=== PATIENT | female | born 1935 | race Caucasian/White ===

== ENCOUNTER 2022-01-02 16:33 | Emergency (ER) | payer OTHER ==
[2022-01-02 18:12] LABS: Absolute Lymphocytes (CBC) 1.2 K/uL (0.7-4.9); Hematocrit 39.2 % (36.0-45.0); Lymphocytes % 18.8 % (15.3-44.8); RBC Red Blood Cell Count 4.33 M/uL (3.86-4.86)
--- NOTE | 2022-01-02 18:18 | RAD REPORT ---
EXAM DESCRIPTION: RAD - Chest Single View - 01/02/2022 5:54 pm CLINICAL HISTORY: AMS COMPARISON: No comparisons FINDINGS: Lines: Pacemaker. Lungs: No evidence of edema or pneumonia. Pleural: No significant pleural effusions or pneumothorax. Cardiac: The heart size is within normal limits. Bones: No acute fractures. Other: IMPRESSION: No acute cardiopulmonary disease.
[2022-01-02 18:34] LABS: Albumin 3.6 g/dL (3.4-5.0); Bilirubin Total 0.7 mg/dL (0.2-1.0); Potassium 3.3 mmol/L (3.5-5.1); Protein, Total 6.8 g/dL (6.4-8.2)
--- NOTE | 2022-01-02 18:37 | RAD REPORT ---
EXAM DESCRIPTION: CT - Head Brain Wo Cont - 01/02/2022 6:25 pm CLINICAL HISTORY: Mental status change, unknown cause COMPARISON: <Comparisons> TECHNIQUE: All CT scans are performed using dose optimization technique as appropriate and may inclu de automated exposure control or mA/KV adjustment according to patient size. FINDINGS: No intracranial hemorrhage, hydrocephalus or extra-axial fluid collection.No areas of brai n edema or evidence of midline shift. Cerebral atrophy. Remote appearing heart. Proximal osseus The paranasal sinuses and mastoids are clear. The calvarium is intact. IMPRESSION: No acute intracranial abnormality. Remote appearing left occipital lobe infarct.
[2022-01-02 19:24] LABS: SARS-COV-2 RT PCR NEGATIVE (NEGATIVE)
[2022-01-02 19:56] LABS: Urine Bacteria LOADED /HPF (<20); Urine RBC <5 /HPF (NONE SEEN)
--- NOTE | 2022-01-02 20:06 | EDPHYS ---
Physician Documentation [facility] Name: Yamileth Varela Age: 86 yrs Sex: Female : 1935 Arrival Date: 01/02/2022 Time: 16:39 Bed 15 Private MD: ED Physician Constantine Powers HPI: 01/02 17:15 This 86 yrs old Female presents to ER via Wheelchair with complaints of Altered Mental pm1 Status, Urinary Problem. 17:15 The patient presents with Aggressiveness. Patient was confronting other patients and pm1 health care staff. Patient currently staying in a Alzheimer's/dementia unit. They are concerned that she may have a UTI. Similar behavior in the past with UTI. Onset: The symptoms/episode began/occurred today. Possible causes: UTI. Associated signs and symptoms: Pertinent negatives: abdominal pain, chest pain, diarrhea, nausea, vomiting. Current symptoms: In the emergency department the patient's symptoms have improved, Patient not altered or aggressive in the ER currently. Daughter in law at bedside and patient at her baseline. Patient's baseline: Neuro: orientated to person, place, Motor: no deficits, Ambulation: walks without assistance, Speech: normal, The patient has a previous history of Dementia. The patient has experienced a previous episode, many years ago. The patient has not recently seen a physician. Historical: - Allergies: 16:54 No Known Allergies; jb4 - PMHx: 16:54 Hypertensive disorder; Diabetes mellitus; Dementia; jb4 - PSHx: 16:54 pacemaker; jb4 - Immunization history:: Adult Immunizations up to date. - Social history:: Smoking status: Patient denies any tobacco usage or history of. Patient/guardian denies using alcohol, street drugs. ROS: 17:15 Constitutional: Negative for fever, chills, and weight loss, Cardiovascular: Negative pm1 for chest pain, palpitations, and edema, Respiratory: Negative for shortness of breath, cough, wheezing, and pleuritic chest pain, Abdomen/GI: Negative for abdominal pain, nausea, vomiting, diarrhea, and constipation, MS/Extremity: Negative for injury and deformity, Skin: Negative for injury, rash, and discoloration. 17:15 Neuro: Positive for aggressive behavior , Negative for headache, numbness, tingling. 17:15 All other systems are negative. Exam: 17:15 Constitutional: This is a well developed, well nourished patient who is awake, alert, pm1 and in no acute distress. Head/Face: Normocephalic, atraumatic. 17:15 Back: No spinal tenderness. No costovertebral tenderness. Full range of motion. Skin: Warm, dry with normal turgor. Normal color with no rashes, no lesions, and no evidence of cellulitis. MS/ Extremity: Pulses equal, no cyanosis. Neurovascular intact. Full, normal range of motion. 17:15 Eyes: Exam is negative for acute changes, Pupils: no acute changes, Extraocular movements: no acute changes, Conjunctiva: normal, no injection. 17:15 Cardiovascular: Exam negative for acute changes, Rate: normal, Rhythm: regular, Pulses: no pulse deficits are appreciated. 17:15 Respiratory: Exam negative for acute changes, respiratory distress, shortness of breath. 17:15 Abdomen/GI: Exam negative for acute changes, Inspection: abdomen appears normal, Palpation: abdomen is soft and non-tender, in all quadrants. 17:15 Neuro: Exam negative for acute changes, Orientation: no acute changes, per family, to person, place, Mentation: is normal, Motor: is normal, moves all fours. Vital Signs: 16:51 BP 111 / 57; Pulse 81; Resp 16; Temp 99.0(O); Pulse Ox 99% on R/A; Weight 56.7 kg (R); jb4 Height 5 ft. 3 in. (160.02 cm) (R); 18:30 BP 111 / 56; Pulse 75; Resp 16; Pulse Ox 100% ; bp 16:51 Body Mass Index 22.14 (56.70 kg, 160.02 cm) jb4 MDM: 17:04 Patient medically screened. pm1 19:59 Differential Diagnosis: CVA, UTI, delirium, Alzheimer's/dementia progression. pm1 20:04 Data reviewed: vital signs. Data interpreted: Pulse oximetry: on room air is 100 %. pm1 Interpretation: normal. Counseling: I had a detailed discussion with the patient and/or guardian regarding: the historical points, exam findings, and any diagnostic results supporting the discharge/admit diagnosis, lab results, radiology results, the need for outpatient follow up, to return to the emergency department if symptoms worsen or persist or if there are any questions or concerns that arise at home. 01/02 17:14 Order name: COVID-19/FLU A+B (Document "Date of Onset" if Symptomatic); Complete Time: pm1 19:29 01/02 17:14 Order name: Urine Microscopic Only; Complete Time: 19:57 pm1 01/02 17:14 Order name: CT Head Brain wo Cont; Complete Time: 18:47 pm1 01/02 17:14 Order name: CBC with Diff; Complete Time: 18:31 pm1 01/02 17:14 Order name: CMP; Complete Time: 18:47 pm1 01/02 19:59 Order name: Urine Culture EDMS 01/02 17:14 Order name: EKG; Complete Time: 17:14 pm1 01/02 17:14 Order name: EKG - Nurse/Tech; Complete Time: 19:08 pm1 01/02 17:14 Order name: Urine Dipstick-Ancillary (obtain specimen); Complete Time: 19:38 pm1 01/02 17:14 Order name: IV Saline Lock; Complete Time: 18:14 pm1 01/02 17:14 Order name: Chest Single View XRAY; Complete Time: 18:31 pm1 Administered Medications: 21:14 Drug: Rocephin (cefTRIAXone) 1 grams Route: IV; Rate: calculated rate; Site: right ke1 antecubital; Disposition Summary: 01/02/22 20:05 Discharge Ordered Location: Home pm1 Problem: new pm1 Symptoms: have improved pm1 Condition: Stable pm1 Diagnosis - UTI/ Urinary tract infection, site not specified pm1 Followup: pm1 - With: Emergency Department - When: As needed - Reason: Worsening of condition Followup: pm1 - With: Private Physician - When: 2 - 3 days - Reason: Recheck today's complaints, Continuance of care, Re-evaluation by your physician Discharge Instructions: - Discharge Summary Sheet pm1 - Urinary Tract Infection, Adult pm1 Forms: - Medication Reconciliation Form pm1 - Thank You Letter pm1 - Antibiotic Education pm1 - Prescription Opioid Use pm1 Prescriptions: - Bactrim DS 800-160 mg Oral Tablet - take 1 tablet by ORAL route every 12 hours for 10 days; 20 tablet; Refills: 0, pm1 Product Selection Permitted Addendum: 01/08/2022 07:59 Co-signature as Attending Physician, Constantine Powers MD I agree with the assessment and c lentz plan of care. Signatures: Dispatcher [employer] Constantine Corado MD MD cha Marinas, Patrick, ROMI LPN pm1 Elvin Griffin, RN RN jb4 Itz Rocha RN RN ke1
--- NOTE | 2022-01-02 20:06 | ER ---
Nurse's Notes [facility] Name: Yamileth Varela Age: 86 yrs Sex: Female : 1935 Arrival Date: 01/02/2022 Time: 16:39 Bed 15 Private MD: Diagnosis: UTI/ Urinary tract infection, site not specified Presentation: 01/02 16:51 Chief complaint: Patient's son or daughter states: Staff at [facility] reports that jb4 she has been very irritable and confrontational with other residents. She seems altered, they are worried about a UTI. Coronavirus screen: At this time, the client does not indicate any symptoms associated with coronavirus-19. Ebola Screen: No symptoms or risks identified at this time. Initial Sepsis Screen: Does the patient meet any 2 criteria? Altered Mental Status. Yes Does the patient have a suspected source of infection? Yes: Dysuria/Frequency/Urgency/UTI. Risk Assessment: Do you want to hurt yourself or someone else? Patient reports no desire to harm self or others. Onset of symptoms was January 02, 2022. Transition of care: patient was not received from another setting of care. 16:51 Method Of Arrival: Wheelchair jb4 16:51 Acuity: KENTRELL 3 jb4 Triage Assessment: 17:00 General: Appears in no apparent distress. comfortable, Behavior is cooperative, bp anxious. Pain: Denies pain. EENT: No deficits noted. Neuro: Level of Consciousness is awake, obeys commands, confused, Oriented to person, place. Cardiovascular: No deficits noted. Respiratory: No deficits noted. GI: No signs and/or symptoms were reported involving the gastrointestinal system. : No signs and/or symptoms were reported regarding the genitourinary system. Derm: No deficits noted. Musculoskeletal: No deficits noted. Historical: - Allergies: 16:54 No Known Allergies; jb4 - PMHx: 16:54 Hypertensive disorder; Diabetes mellitus; Dementia; jb4 - PSHx: 16:54 pacemaker; jb4 - Immunization history:: Adult Immunizations up to date. - Social history:: Smoking status: Patient denies any tobacco usage or history of. Patient/guardian denies using alcohol, street drugs. Screenin:00 Abuse screen: Denies threats or abuse. Denies injuries from another. Nutritional bp screening: No deficits noted. Tuberculosis screening: No symptoms or risk factors identified. Fall Risk None identified. Assessment: 17:00 General: SEE TRIAGE NOTE. bp 18:00 Reassessment: PT TO CT. bp Vital Signs: 16:51 BP 111 / 57; Pulse 81; Resp 16; Temp 99.0(O); Pulse Ox 99% on R/A; Weight 56.7 kg (R); jb4 Height 5 ft. 3 in. (160.02 cm) (R); 18:30 BP 111 / 56; Pulse 75; Resp 16; Pulse Ox 100% ; bp 16:51 Body Mass Index 22.14 (56.70 kg, 160.02 cm) jb4 ED Course: 16:39 Patient arrived in ED. am2 16:54 Triage completed. jb4 16:54 Arm band placed on right wrist. jb4 16:58 Tulio Foster, ALDEN is Primary Nurse. bp 17:00 Vincenzo Carlson NP is PHCP. pm1 17:00 Constantine Powers MD is Attending Physician. pm1 17:30 Inserted saline lock: 20 gauge in right antecubital area, using aseptic technique. bp Blood collected. 17:56 Chest Single View XRAY In Process Unspecified. EDMS 18:00 Patient has correct armband on for positive identification. Bed in low position. Call bp light in reach. Side rails up X2. Adult w/ patient. 18:27 CT Head Brain wo Cont In Process Unspecified. EDMS Administered Medications: 21:14 Drug: Rocephin (cefTRIAXone) 1 grams Route: IV; Rate: calculated rate; Site: right ke1 antecubital; Outcome: 20:05 Discharge ordered by . pm1 21:39 Patient left the ED. tw5 Signatures: Dispatcher [employer] EDMS Vincenzo Carlson NP TRACTOR OPERATOR pm1 Elvin Griffin RN RN jb4 Vonnie Sigala am2 Tulio Foster, RN RN Savi Duke tw5 Itz Rocha RN RN ke1 Corrections: (The following items were deleted from the chart) 16:56 16:51 Chief complaint: Patient's son or daughter states: Staff at [facility] reports jb4 that she has been very irritable and confrontational with other residents. She seems altered, they are worried about a UTI. jb4 18:50 18:30 BP 90 / 66; Pulse 75bpm; Resp 16bpm; Pulse Ox 100%; bp bp
[2022-01-02] MEDS ORDERED: NA CHLORIDE 0.9% 50 ML ONE (21:11)
[2022-01-02] MEDS ORDERED: CEFTRIAXONE 1000 MG/VIAL ONE (21:11)
[2022-01-02 21:49] VITALS: TEMP 99
[2022-01-02 21:51] VITALS: BP 111/56; O2SAT 100
[2022-01-08 10:28] LABS: Urine Blood Negative (Negative); Urine Glucose Negative (Negative); Urine Protein Negative (Negative); Urine Specific Gravity >=1.030 (1.005-1.030); Urine pH 6.5 (5.0-7.0)
== END 2022-01-02 21:39 | disposition home or self-care (01) ==
LOC: ER 16:33
DX: N39.0 Urinary tract infection, site not specified (principal); F03.90 Unspecified dementia, unspecified severity, without behavioral disturbance, psychotic disturbance, mood disturbance, and anxiety; E11.9 Type 2 diabetes mellitus without complications; I10 Essential (primary) hypertension; Z20.822 Contact with and (suspected) exposure to COVID-19; Z95.0 Presence of cardiac pacemaker
CPT/HCPCS: 93005; 87088; 85025; 87086; 36415; 80053; 0240U; 70450; 71045; 96374; 99284; 81003; 81015

== ENCOUNTER 2022-01-08 16:54 | Emergency (ER) | payer OTHER ==
[2022-01-08 17:32] LABS: Absolute Lymphocytes (CBC) 1.4 K/uL (0.7-4.9); Hematocrit 37.5 % (36.0-45.0); Lymphocytes % 17.3 % (15.3-44.8); MPV 7.8 fL (7.6-11.3); RBC Red Blood Cell Count 4.21 M/uL (3.86-4.86)
[2022-01-08 17:36] LABS: Protime INR 1.06
[2022-01-08] MEDS ORDERED: NA CHLORIDE 0.9% 500 ML ONE (17:38)
[2022-01-08] MEDS ORDERED: CEFTRIAXONE 1000 MG/VIAL ONE (17:38)
[2022-01-08 17:50] LABS: Albumin 3.6 g/dL (3.4-5.0); Bilirubin Direct 0.2 mg/dL (0-0.2); Bilirubin Total 0.5 mg/dL (0.2-1.0); Magnesium 2.4 mg/dL (1.8-2.4); Potassium 3.6 mmol/L (3.5-5.1); Protein, Total 6.8 g/dL (6.4-8.2)
[2022-01-08 17:51] LABS: Troponin High Sensitivity 5.6 pg/mL (<58.9)
--- NOTE | 2022-01-08 18:29 | RAD REPORT ---
EXAM DESCRIPTION: CT - Head C Spine Cap Wo Con - 01/08/2022 5:56 pm TECHNIQUE: Computed axial tomography of the head and cervical spine was obtained. Coronal and sagitt al reconstruction was performed Computed axial tomography of the chest, abdomen and pelvis was obtained. Contrast was not requested. All CT scans are performed using dose optimization technique as appropriate and may include automated exposure control or mA/KV adjustment according to patient size. CLINICAL HISTORY: Head and neck injury with chest and abdominal pain status post fall COMPARISON: CT head January 02 2022 FINDINGS: An intracranial bleed is not seen. Small low-density area within the left occipital lobe probably an old infarction The ventricles are normal in caliber. An extra-axial fluid collection is not noted. . Fluid within the sinuses/mastoids is not seen. 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 This is without ch mike from the prior head CT. No acute fracture or dislocation seen. The evaluation of mediastinum, rubén, vessels, solid organs and bowel are limited secondary to the lac k of contrast administration. A mediastinal hematoma is not noted. A pleural effusion is not seen. A lung contusion is not present. The liver,spleen, pancreas, adrenals,kidneys and bladder do not demonstrate a traumatic injury. Yytj-[id number]-zellobpo compression L1 vertebral body estimated 35%. No fracture line seen Cholelithiasis IMPRESSION: 1. No acute intracranial abnormality is seen. 2. 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 This is unchanged from January 02, 2022. This likely is a chronic finding and could be congenital or secondary to old trauma. If the patient has clinical sympt oms to suggest that this could be subacute MRI would be recommended. 3. Mild to moderate compression L1 vertebral body appears more chronic than acute. If patient has cli nical symptoms to suggest this could be acute then MRI would be recommended.
[2022-01-08 18:51] LABS: Urine Blood Negative (Negative); Urine Glucose Negative (Negative); Urine Protein Negative (Negative); Urine pH 6.5 (5.0-7.0)
--- NOTE | 2022-01-08 18:57 | ER ---
Nurse's Notes [facility] Name: Yamileth Varela Age: 86 yrs Sex: Female : 1935 Arrival Date: 01/08/2022 Time: 16:58 Bed 15 Private MD: Diagnosis: Fall on same level, unspecified;Dementia in other diseases classified elsewhere without behavioral disturbance Presentation: 01/08 16:58 Chief complaint: EMS states: She had an unwitnessed fall in the senior care. Pt states ab2 she lost her balance and fell backwards. Pt did hit her head but denies LOC. Pt c/o headache. Pt arrived with c-collar in place. Coronavirus screen: Vaccine status: Client denies travel out of the [place] in the last 14 days. At this time, the client does not indicate any symptoms associated with coronavirus-19. Ebola Screen: Patient negative for fever greater than or equal to 101.5 degrees Fahrenheit, and additional compatible Ebola Virus Disease symptoms Patient denies exposure to infectious person. Patient denies travel to an Ebola-affected area in the 21 days before illness onset. No symptoms or risks identified at this time. Initial Sepsis Screen: Does the patient meet any 2 criteria? No. Patient's initial sepsis screen is negative. Does the patient have a suspected source of infection? No. Patient's initial sepsis screen is negative. Risk Assessment: Do you want to hurt yourself or someone else? Patient reports no desire to harm self or others. Onset of symptoms is unknown. 16:58 Method Of Arrival: EMS: [facility] ab2 16:58 Acuity: KENTRELL 3 ab2 Historical: - Allergies: 17:01 No Known Allergies; ab2 - PMHx: 17:01 Dementia; diabetes mellitus; Hypertensive disorder; ab2 - PSHx: 17:01 pacemaker; ab2 - Immunization history:: Adult Immunizations up to date. - Social history:: Smoking status: Patient denies any tobacco usage or history of. Screenin:02 Abuse screen: Denies threats or abuse. Denies injuries from another. Nutritional ab2 screening: No deficits noted. Tuberculosis screening: No symptoms or risk factors identified. Fall Risk None identified. Assessment: 17:01 General: Appears in no apparent distress. comfortable, Behavior is calm, cooperative, ab2 appropriate for age. Pain: Complains of pain in head Pain currently is 7 out of 10 on a pain scale. Neuro: Level of Consciousness is awake, alert, obeys commands, Oriented to person, situation, Appropriate for age [place] are equal bilaterally Moves all extremities. Cardiovascular: No deficits noted. Denies chest pain, shortness of breath, Heart tones S1 S2 present Patient's skin is warm and dry. Respiratory: No deficits noted. Airway is patent Respiratory effort is even, unlabored, Respiratory pattern is regular, symmetrical, Breath sounds are clear bilaterally. GI: No deficits noted. No signs and/or symptoms were reported involving the gastrointestinal system. Abdomen is round non-distended, Bowel sounds present X 4 quads. GI: Abd is soft and non tender. : No deficits noted. No signs and/or symptoms were reported regarding the genitourinary system. EENT: No deficits noted. No signs and/or symptoms were reported regarding the EENT system. Derm: No deficits noted. Skin is intact, Skin is pink, warm \T\ dry. Vital Signs: 16:58 BP 107 / 52; Pulse 80; Resp 17; Temp 97.6; Pulse Ox 99% on R/A; Weight 68.04 kg; Height ab2 5 ft. 9 in. (175.26 cm); Pain 7/10; 18:00 BP 111 / 60; Pulse 83; Resp 16; Pulse Ox 98% ; ab2 19:15 BP 104 / 54; Pulse 73; Resp 17; Pulse Ox 98% ; ab2 16:58 Body Mass Index 22.15 (68.04 kg, 175.26 cm) ab2 Gloria Coma Score: 18:30 Eye Response: spontaneous(4). Verbal Response: oriented(5). Motor Response: obeys tatiana commands(6). Total: 15. 18:33 Eye Response: spontaneous(4). Verbal Response: oriented(5). Motor Response: obeys tatiana commands(6). Total: 15. ED Course: 16:58 Patient arrived in ED. ab2 16:58 Tanner Tovar is Primary Nurse. ab2 17:01 Triage completed. ab2 17:02 Arm band placed on right wrist. ab2 17:02 Patient has correct armband on for positive identification. Bed in low position. Call ab2 light in reach. Side rails up X2. 17:02 No provider procedures requiring assistance completed. ab2 17:10 Constantine Powers MD is Attending Physician. tatiana 17:29 Basic Metabolic Panel Sent. ab2 17:29 CBC with Diff Sent. ab2 17:29 LFT's Sent. ab2 17:29 Magnesium Sent. ab2 17:29 NT PRO-BNP Sent. ab2 17:29 PT-INR Sent. ab2 17:29 Troponin HS Sent. ab2 17:37 EKG done, by ED staff, reviewed by Constantine Powers MD. dh3 17:58 Head C Spine Cap Wo Con In Process Unspecified. EDMS 18:36 XRAY Chest (1 view) In Process Unspecified. EDMS 20:07 IV discontinued, intact, bleeding controlled, No redness/swelling at site. Pressure ab2 dressing applied. Administered Medications: 17:38 Drug: NS 0.9% 500 ml Route: IV; Rate: bolus; Site: right antecubital; ab2 20:07 Follow up: Response: No adverse reaction; IV Status: Completed infusion ab2 17:38 Drug: Rocephin (cefTRIAXone) 1 grams Route: IV; Rate: per protocol; Site: right ab2 antecubital; 20:08 Follow up: Response: No adverse reaction ab2 20:08 Follow up: Response: No adverse reaction; IV Status: Completed infusion ab2 Outcome: 18:56 Discharge ordered by . [facility] 20:07 Discharged to home with family. ab2 20:07 Condition: good 20:07 Discharge instructions given to patient, family, Instructed on discharge instructions, follow up and referral plans. Demonstrated understanding of instructions, follow-up care. 20:08 Patient left the ED. ab2 Signatures: Dispatcher [employer] Constantine Corado MD MD cha Herrera, [facility] Tanner Tovar ab2
--- NOTE | 2022-01-08 18:57 | EDPHYS ---
Physician Documentation [facility] Name: Yamileth Varela Age: 86 yrs Sex: Female : 1935 Arrival Date: 01/08/2022 Time: 16:58 Bed 15 Private MD: ED Physician Constantine Powers HPI: 01/08 18:30 This 86 yrs old Female presents to ER via EMS with complaints of fall, hit tatiana head, on treatment for uti. 18:30 The patient or guardian reports pain. The complaints affect the left side of the back tatiana of head, left occipital area, left base of the skull, right side of the back of head, right occipital area and right base of the skull. Context of injury: The problem was sustained. Onset: The symptoms/episode began/occurred just prior to arrival. Associated signs and symptoms: The patient has no apparent associated signs or symptoms, Loss of consciousness: This patient did not experience any loss of consciousness. Details of fall: The patient fell from an upright position, while walking. Associated injuries: The patient sustained injury to the head. Severity of symptoms: At their worst the symptoms were mild, in the emergency department the symptoms are unchanged. The patient has experienced similar episodes in the past, several times. Historical: - Allergies: 17:01 No Known Allergies; ab2 - PMHx: 17:01 Dementia; diabetes mellitus; Hypertensive disorder; ab2 - PSHx: 17:01 pacemaker; ab2 - Immunization history:: Adult Immunizations up to date. - Social history:: Smoking status: Patient denies any tobacco usage or history of. ROS: 18:32 Constitutional: Negative for fever, chills, and weight loss, Eyes: Negative for injury, tatiana pain, redness, and discharge, ENT: Negative for injury, pain, and discharge, Neck: Negative for injury, pain, and swelling, Cardiovascular: Negative for chest pain, palpitations, and edema, Respiratory: Negative for shortness of breath, cough, wheezing, and pleuritic chest pain, Abdomen/GI: Negative for abdominal pain, nausea, vomiting, diarrhea, and constipation, Back: Negative for injury and pain, : Negative for injury, bleeding, discharge, and swelling, MS/Extremity: Negative for injury and deformity, Skin: Negative for injury, rash, and discoloration, Psych: Negative for depression, anxiety, suicide ideation, homicidal ideation, and hallucinations, Allergy/Immunology: Negative for hives, rash, and allergies, Endocrine: Negative for neck swelling, polydipsia, polyuria, polyphagia, and marked weight changes, Hematologic/Lymphatic: Negative for swollen nodes, abnormal bleeding, and unusual bruising. 18:32 Neuro: Positive for headache, weakness. Exam: 18:32 Constitutional: This is a well developed, well nourished patient who is awake, alert, tatiana and in no acute distress. Eyes: Pupils equal round and reactive to light, extra-ocular motions intact. Lids and lashes normal. Conjunctiva and sclera are non-icteric and not injected. Cornea within normal limits. Periorbital areas with no swelling, redness, or edema. ENT: Nares patent. No nasal discharge, no septal abnormalities noted. Tympanic membranes are normal and external auditory canals are clear. Oropharynx with no redness, swelling, or masses, exudates, or evidence of obstruction, uvula midline. Mucous membranes moist. Neck: Trachea midline, no thyromegaly or masses palpated, and no cervical lymphadenopathy. Supple, full range of motion without nuchal rigidity, or vertebral point tenderness. No Meningismus. Chest/axilla: Normal chest wall appearance and motion. Nontender with no deformity. No lesions are appreciated. Cardiovascular: Regular rate and rhythm with a normal S1 and S2. No gallops, murmurs, or rubs. Normal PMI, no JVD. No pulse deficits. Respiratory: Lungs have equal breath sounds bilaterally, clear to auscultation and percussion. No rales, rhonchi or wheezes noted. No increased work of breathing, no retractions or nasal flaring. Abdomen/GI: Soft, non-tender, with normal bowel sounds. No distension or tympany. No guarding or rebound. No evidence of tenderness throughout. Back: No spinal tenderness. No costovertebral tenderness. Full range of motion. Skin: Warm, dry with normal turgor. Normal color with no rashes, no lesions, and no evidence of cellulitis. MS/ Extremity: Pulses equal, no cyanosis. Neurovascular intact. Full, normal range of motion. Neuro: Awake and alert, GCS 15, oriented to person, place, time, and situation. Cranial nerves II-XII grossly intact. Motor strength 5/5 in all extremities. Sensory grossly intact. Cerebellar exam normal. Normal gait. Psych: Awake, alert, with orientation to person, place and time. Behavior, mood, and affect are within normal limits. 18:32 Head/face: Noted is contusion, that is superficial, of the left side of the back of head, left occipital area, left base of the skull, right side of the back of head, right occipital area and right base of the skull. 18:41 ECG was reviewed by the Attending Physician. [facility] Vital Signs: 16:58 BP 107 / 52; Pulse 80; Resp 17; Temp 97.6; Pulse Ox 99% on R/A; Weight 68.04 kg; Height ab2 5 ft. 9 in. (175.26 cm); Pain 7/10; 18:00 BP 111 / 60; Pulse 83; Resp 16; Pulse Ox 98% ; ab2 19:15 BP 104 / 54; Pulse 73; Resp 17; Pulse Ox 98% ; ab2 16:58 Body Mass Index 22.15 (68.04 kg, 175.26 cm) ab2 Gloria Coma Score: 18:30 Eye Response: spontaneous(4). Verbal Response: oriented(5). Motor Response: obeys tatiana commands(6). Total: 15. 18:33 Eye Response: spontaneous(4). Verbal Response: oriented(5). Motor Response: obeys tatiana commands(6). Total: 15. MDM: 17:11 Patient medically screened. [facility] 18:33 Differential diagnosis: Contusion of Hematoma on Laceration of Intracranial bleed- [facility] Concussion without LOC. cerebral contusion. Differential diagnosis: abrasion, closed head injury, contusion, fracture, laceration, multiple trauma, sprain, strain. Data reviewed: vital signs, nurses notes, lab test result(s), EKG, radiologic studies, CT scan, plain films. Data interpreted: plant guide: rate is 80 beats/min, rhythm is regular, Pulse oximetry: on room air is 99 %. Test interpretation: by ED physician or midlevel provider: ECG, plain radiologic studies. Counseling: I had a detailed discussion with the patient and/or guardian regarding: the historical points, exam findings, and any diagnostic results supporting the discharge/admit diagnosis, lab results, radiology results, the need for outpatient follow up, for definitive care, a family practitioner. 01/08 17:12 Order name: Basic Metabolic Panel; Complete Time: 18:36 [facility] 01/08 17:12 Order name: CBC with Diff; Complete Time: 18:36 [facility] 01/08 17:12 Order name: LFT's; Complete Time: 18:36 [facility] 01/08 17:12 Order name: Magnesium; Complete Time: 18:36 [facility] 01/08 17:12 Order name: NT PRO-BNP; Complete Time: 18:36 [facility] 01/08 17:12 Order name: PT-INR; Complete Time: 18:36 [facility] 01/08 17:12 Order name: Troponin HS; Complete Time: 18:36 [facility] 01/08 17:12 Order name: XRAY Chest (1 view) [facility] 01/08 17:12 Order name: CT Traumagram (Head C Spine CAP wo con) [facility] 01/08 17:14 Order name: Urine Culture [facility] 01/08 17:18 Order name: Head C Spine Cap Wo Con; Complete Time: 18:36 EDMS 01/08 18:51 Order name: Urine Dipstick-Ancillary; Complete Time: 18:55 EDMS 01/08 17:12 Order name: EKG; Complete Time: 17:13 [facility] 01/08 17:12 Order name: Cardiac monitoring; Complete Time: 17:29 [facility] 01/08 17:12 Order name: EKG - Nurse/Tech; Complete Time: 17:29 [facility] 01/08 17:12 Order name: IV Saline Lock; Complete Time: 17:29 [facility] 01/08 17:12 Order name: Labs collected and sent; Complete Time: 17:29 [facility] 01/08 17:12 Order name: O2 Per Protocol; Complete Time: 17:29 [facility] 01/08 17:12 Order name: O2 Sat Monitoring; Complete Time: 17:29 [facility] 01/08 17:12 Order name: Urine Dipstick-Ancillary (obtain specimen); Complete Time: 18:52 tatiana EC:41 Rate is 81 beats/min. Rhythm is regular. QRS Quinton is Normal. MT interval is normal. QRS tatiana interval is normal. QT interval is normal. No Q waves. T waves are Normal. No ST changes noted. Clinical impression: NSR w/ Non-specific ST/T Changes and No evidence of ischemia. Interpreted by me. Reviewed by me. Administered Medications: 17:38 Drug: NS 0.9% 500 ml Route: IV; Rate: bolus; Site: right antecubital; ab2 20:07 Follow up: Response: No adverse reaction; IV Status: Completed infusion ab2 17:38 Drug: Rocephin (cefTRIAXone) 1 grams Route: IV; Rate: per protocol; Site: right ab2 antecubital; 20:08 Follow up: Response: No adverse reaction ab2 20:08 Follow up: Response: No adverse reaction; IV Status: Completed infusion ab2 Disposition Summary: 01/08/22 18:56 Discharge Ordered Location: Home tatiana Problem: new tatiana Symptoms: have improved tatiana Condition: Stable tatiana Diagnosis - Fall on same level, unspecified tatiana - Dementia in other diseases classified elsewhere without behavioral disturbance tatiana Followup: tatiana - With: Private Physician - When: 2 - 3 days - Reason: Recheck today's complaints, Continuance of care, Re-evaluation by your physician Discharge Instructions: - Discharge Summary Sheet tatiana - Dementia tatiana - Fall Prevention in the Home, Adult tatiana - Fall Prevention in the Home, Adult, [id number] tatiana - Head Injury, Pediatric tatiana - Head Injury, Pediatric, [id number] tatiana Forms: - Medication Reconciliation Form tatiana - Thank You Letter tatiana - Antibiotic Education tatiana - Prescription Opioid Use tatiana Signatures: Dispatcher [employer] EDConstantine Denton MD MD cha Bleininger, Alexis ab2
--- NOTE | 2022-01-08 19:36 | RAD REPORT ---
EXAM DESCRIPTION: [facility] Single View01/08/2022 6:34 pm CLINICAL HISTORY: Chest pain COMPARISON: January 02, 2022 FINDINGS: The lungs appear clear of acute infiltrate. The heart is normal size. Pacemaker leads in place IMPRESSION: No acute abnormalities displayed
[2022-01-08 20:13] VITALS: TEMP 97.6
[2022-01-08 20:15] VITALS: O2SAT 98
[2022-01-08 20:16] VITALS: BP 104/54
== END 2022-01-08 20:08 | disposition home or self-care (01) ==
LOC: ER 16:54
DX: S00.83XA Contusion of other part of head, initial encounter (principal); F03.90 Unspecified dementia, unspecified severity, without behavioral disturbance, psychotic disturbance, mood disturbance, and anxiety; R53.1 Weakness; W18.30XA Fall on same level, unspecified, initial encounter; E11.9 Type 2 diabetes mellitus without complications; I10 Essential (primary) hypertension; Z95.0 Presence of cardiac pacemaker
CPT/HCPCS: 96365; 93005; 87088; 85025; 87086; 80048; 36415; 83735; 85610; 80076; 81003; 84484; 83880; 70450; 71250; 72125; 71045; 99284; 96366; J7040

== ENCOUNTER 2022-01-14 01:35 | Emergency (ER) | payer OTHER ==
[2022-01-14 01:56] LABS: Absolute Lymphocytes (CBC) 1.1 K/uL (0.7-4.9); Lymphocytes % 19.1 % (15.3-44.8); MPV 7.8 fL (7.6-11.3); RBC Red Blood Cell Count 4.14 M/uL (3.86-4.86)
[2022-01-14 02:16] LABS: Albumin 3.5 g/dL (3.4-5.0); Bilirubin Direct 0.2 mg/dL (0-0.2); Bilirubin Total 0.6 mg/dL (0.2-1.0); Protein, Total 6.8 g/dL (6.4-8.2); Troponin High Sensitivity 6.2 pg/mL (<58.9)
[2022-01-14 02:19] LABS: Magnesium 2.3 mg/dL (1.8-2.4); Protime INR 1.04
[2022-01-14] MEDS ORDERED: NA CHLORIDE 0.9% 1,000 ML ONE (02:19)
[2022-01-14] MEDS ORDERED: CEFAZOLIN SODIUM 1 GM/VIAL ONE (02:19)
[2022-01-14] MEDS ORDERED: TETANUS & DIPHTHERIA TOX,ADULT 0.5 ML VIAL ONE (02:20)
[2022-01-14] MEDS ORDERED: NA CHLORIDE 0.9% 0 ML IV ONE (02:58)
[2022-01-14] MEDS ORDERED: NA CHLORIDE 0.9% 50 ML ONE (03:50)
--- NOTE | 2022-01-14 04:25 | ER ---
Nurse's Notes [facility] Name: Yamileth Varela Age: 86 yrs Sex: Female : 1935 Arrival Date: 01/14/2022 Time: 01:37 Bed 7 Private MD: Diagnosis: Fall on same level, unspecified;Laceration without foreign body of other part of head-right brow;Dementia in other diseases classified elsewhere without behavioral disturbance Presentation: 01/14 01:51 Chief complaint: EMS states: pt from [facility] with an unwitnessed fall. laceration al4 to R forehead and busted R lip. Coronavirus screen: Vaccine status: Patient reports receiving the 2nd dose of the covid vaccine. Ebola Screen: No symptoms or risks identified at this time. Initial Sepsis Screen: Does the patient meet any 2 criteria? No. Patient's initial sepsis screen is negative. Does the patient have a suspected source of infection? No. Patient's initial sepsis screen is negative. Risk Assessment: Do you want to hurt yourself or someone else? Patient reports no desire to harm self or others. Onset of symptoms was January 14, 2022. 01:51 Method Of Arrival: EMS al4 01:51 Acuity: KENTRELL 3 al4 Triage Assessment: 02:00 General: Appears in no apparent distress. uncomfortable, Behavior is calm, cooperative. al4 Pain: Complains of pain in face. Neuro: Level of Consciousness is awake, alert, obeys commands, Oriented to person, place, time, situation, Speech is normal. Cardiovascular: Patient's skin is warm and dry. Respiratory: Airway is patent Respiratory effort is unlabored. Derm: Wound noted forehead Wound is laceration about 1 inch. Historical: - Allergies: 02:00 No Known Allergies; al4 - PMHx: 02:00 Dementia; diabetes mellitus; Hypertensive disorder; al4 - PSHx: 02:00 pacemaker; al4 - Immunization history:: Adult Immunizations up to date, Client reports receiving the 2nd dose of the Covid vaccine. - Social history:: Smoking status: Patient denies any tobacco usage or history of. - Family history:: not pertinent. Screenin:57 Abuse screen: Denies threats or abuse. Nutritional screening: No deficits noted. al4 Tuberculosis screening: No symptoms or risk factors identified. Fall Risk Fall in past 12 months (25 points). IV access (20 points). Ambulatory Aid- Crutches/Cane/Walker (15 pts). Gait- Weak (10 pts.). Mental Status- Oriented to own ability (0 pts). Total Lopez Fall Scale indicates High Risk Score (45 or more points). Fall prevention measures have been instituted. Side Rails Up X 2 Placed Close to Nursing Station Frequent Obs/Assessments Occuring Family Present and informed to notify staff if the need to leave the bedside As available patient and family educated on Fall Prevention Program and Strategies. Assessment: 02:02 Reassessment: see triage assessment. al4 02:19 Reassessment: daughter at bedside. patient went to CT. al4 03:50 Reassessment: Patient appears in no apparent distress at this time. Patient denies pain al4 at this time. 04:27 Reassessment: Patient appears in no apparent distress at this time. daughter at al4 bedside. patient resting quietly with eyes closed. chest rise and fall present. . 04:40 Reassessment: patient is up for d/c. awaiting MD to suture patients laceration before al4 d/c. 05:36 Reassessment: Patient appears in no apparent distress at this time. No changes from al4 previously documented assessment. 06:00 Reassessment: Patient appears in no apparent distress at this time. al4 Vital Signs: 01:51 BP 106 / 57; Pulse 83; Resp 16; Temp 98.7(O); Pulse Ox 100% ; al4 02:30 BP 112 / 44; Pulse 70; Resp 16 S; Pulse Ox 100% on R/A; al4 03:30 BP 103 / 48; Pulse 74; Resp 16 S; Pulse Ox 100% on R/A; Pain 0/10; al4 04:00 BP 110 / 51; Pulse 76; Resp 17; Pulse Ox 100% on R/A; Pain 0/10; al4 05:30 BP 101 / 54; Pulse 94; Resp 12 S; Pulse Ox 100% on R/A; al4 Comer Coma Score: 04:17 Eye Response: spontaneous(4). Verbal Response: oriented(5). Motor Response: obeys tatiana commands(6). Total: 15. 04:21 Eye Response: spontaneous(4). Verbal Response: oriented(5). Motor Response: obeys tatiana commands(6). Total: 15. ED Course: 01:37 Patient arrived in ED. ds4 01:40 Constantine Powers MD is Attending Physician. tatiana 01:50 Basic Metabolic Panel Sent. al4 01:50 CBC with Diff Sent. al4 01:50 LFT's Sent. al4 02:00 Triage completed. al4 02:01 Arm band placed on left wrist. al4 02:02 Missed attempt(s): 20 gauge in right antecubital area. Bleeding controlled, band aid al4 applied, catheter tip intact. 02:02 Patient has correct armband on for positive identification. Bed in low position. Side al4 rails up X2. color television console monitor on. Pulse ox on. NIBP on. 02:08 Arcenio Dominguez, ALDEN is Primary Nurse. as6 02:13 XRAY Chest (1 view) In Process Unspecified. EDMS 03:05 Head C Spine Cap Wo Con In Process Unspecified. EDMS 03:52 Inserted saline lock: 20 gauge in right antecubital area, using aseptic technique. oe 05:36 No provider procedures requiring assistance completed. al4 06:01 IV discontinued, intact, bleeding controlled, No redness/swelling at site. Pressure al4 dressing applied. Administered Medications: 03:50 Drug: NS 0.9% 1000 ml Route: IV; Rate: 125 ml/hr; Site: right antecubital; al4 06:02 Follow up: Response: No adverse reaction; IV Status: Completed infusion; IV Intake: al4 500ml 03:50 Drug: Ancef (cefazolin) 1 grams Route: IVPB; Site: right antecubital; al4 04:42 Follow up: Response: No adverse reaction; IV Status: Completed infusion al4 03:54 Drug: Tetanus-Diphtheria Toxoid Adult 0.5 ml {Clinical Informatics Strategist: [employer]. Exp: al4 11/28/2023. Lot #: [id number]. } Route: IM; Site: left deltoid; 04:28 Follow up: Response: No adverse reaction al4 04:45 Drug: Lidocaine-Epinephrine -1%: (1:100,000) 10 ml {Note: administered by provider .} as6 Volume: 20 ml; Route: Infiltration; Intake: 06:02 IV: 500ml; Total: 500ml. al4 Outcome: 04:25 Discharge ordered by . tatiana 06:00 Discharged to home via wheelchair, with family. al4 06:00 Condition: stable 06:00 Discharge instructions given to patient, family, Instructed on discharge instructions, follow up and referral plans. medication usage, Demonstrated understanding of instructions, follow-up care, medications, Prescriptions given X 1. 06:02 Patient left the ED. al4 Signatures: Dispatcher [employer] EDPA Constantine Powers MD MD cha Swanson, Donovan ds4 Juno Ding Ashby, RN RN as6 Tanner Larsen al4 Corrections: (The following items were deleted from the chart) 04:41 02:00 Derm: Wound noted forehead Wound is laceration al4 al4
--- NOTE | 2022-01-14 04:25 | EDPHYS ---
[facility] Name: Yamileth Varela Age: 86 yrs Sex: Female : 1935 Arrival Date: 01/14/2022 Time: 01:37 Bed 7 Private MD: ED Physician Constantine Powers HPI: 01/14 04:17 This 86 yrs old Female presents to ER via EMS with complaints of fall at ma, tatiana hit right brow. 04:17 The patient or guardian reports a laceration, 2.5 cm(s), pain. The complaints affect tatiana the right eye. Context of injury: The problem was sustained at a [facility] or assisted living facility. Onset: The symptoms/episode began/occurred just prior to arrival. Associated signs and symptoms: Loss of consciousness: This patient did not experience any loss of consciousness. dementia, fall, at baseline. Details of fall: The patient fell from an upright position, while walking. Associated injuries: The patient sustained injury to the head. Severity of symptoms: At their worst the symptoms were mild, in the emergency department the symptoms have improved, moderately. Historical: - Allergies: 02:00 No Known Allergies; al4 - PMHx: 02:00 Dementia; diabetes mellitus; Hypertensive disorder; al4 - PSHx: 02:00 pacemaker; al4 - Immunization history:: Adult Immunizations up to date, Client reports receiving the 2nd dose of the Covid vaccine. - Social history:: Smoking status: Patient denies any tobacco usage or history of. - Family history:: not pertinent. ROS: 04:17 Constitutional: Negative for fever, chills, and weight loss, Eyes: Negative for injury, tatiana pain, redness, and discharge, ENT: Negative for injury, pain, and discharge, Neck: Negative for injury, pain, and swelling, Cardiovascular: Negative for chest pain, palpitations, and edema, Respiratory: Negative for shortness of breath, cough, wheezing, and pleuritic chest pain, Abdomen/GI: Negative for abdominal pain, nausea, vomiting, diarrhea, and constipation, Back: Negative for injury and pain, : Negative for injury, bleeding, discharge, and swelling, MS/Extremity: Negative for injury and deformity, Neuro: Negative for headache, weakness, numbness, tingling, and seizure, Psych: Negative for depression, anxiety, suicide ideation, homicidal ideation, and hallucinations, Allergy/Immunology: Negative for hives, rash, and allergies, Endocrine: Negative for neck swelling, polydipsia, polyuria, polyphagia, and marked weight changes, Hematologic/Lymphatic: Negative for swollen nodes, abnormal bleeding, and unusual bruising. 04:17 Skin: Positive for laceration(s). Exam: 04:17 Constitutional: This is a well developed, well nourished patient who is awake, alert, tatiana and in no acute distress. Eyes: Pupils equal round and reactive to light, extra-ocular motions intact. Lids and lashes normal. Conjunctiva and sclera are non-icteric and not injected. Cornea within normal limits. Periorbital areas with no swelling, redness, or edema. ENT: Nares patent. No nasal discharge, no septal abnormalities noted. Tympanic membranes are normal and external auditory canals are clear. Oropharynx with no redness, swelling, or masses, exudates, or evidence of obstruction, uvula midline. Mucous membranes moist. Neck: Trachea midline, no thyromegaly or masses palpated, and no cervical lymphadenopathy. Supple, full range of motion without nuchal rigidity, or vertebral point tenderness. No Meningismus. Chest/axilla: Normal chest wall appearance and motion. Nontender with no deformity. No lesions are appreciated. Cardiovascular: Regular rate and rhythm with a normal S1 and S2. No gallops, murmurs, or rubs. Normal PMI, no JVD. No pulse deficits. Respiratory: Lungs have equal breath sounds bilaterally, clear to auscultation and percussion. No rales, rhonchi or wheezes noted. No increased work of breathing, no retractions or nasal flaring. Abdomen/GI: Soft, non-tender, with normal bowel sounds. No distension or tympany. No guarding or rebound. No evidence of tenderness throughout. Back: No spinal tenderness. No costovertebral tenderness. Full range of motion. Female : Normal external genitalia. Skin: Warm, dry with normal turgor. Normal color with no rashes, no lesions, and no evidence of cellulitis. MS/ Extremity: Pulses equal, no cyanosis. Neurovascular intact. Full, normal range of motion. Neuro: Awake and alert, GCS 15, oriented to person, place, time, and situation. Cranial nerves II-XII grossly intact. Motor strength 5/5 in all extremities. Sensory grossly intact. Cerebellar exam normal. Normal gait. Psych: Awake, alert, with orientation to person, place and time. Behavior, mood, and affect are within normal limits. 04:17 Head/face: Noted is a laceration(s), that is deep, 2.5 cm(s), of the middle aspect of right eyebrow and outer aspect of right eyebrow. 04:26 ECG was reviewed by the Attending Physician. [facility] Vital Signs: 01:51 BP 106 / 57; Pulse 83; Resp 16; Temp 98.7(O); Pulse Ox 100% ; al4 02:30 BP 112 / 44; Pulse 70; Resp 16 S; Pulse Ox 100% on R/A; al4 03:30 BP 103 / 48; Pulse 74; Resp 16 S; Pulse Ox 100% on R/A; Pain 0/10; al4 04:00 BP 110 / 51; Pulse 76; Resp 17; Pulse Ox 100% on R/A; Pain 0/10; al4 05:30 BP 101 / 54; Pulse 94; Resp 12 S; Pulse Ox 100% on R/A; al4 [place] Coma Score: 04:17 Eye Response: spontaneous(4). Verbal Response: oriented(5). Motor Response: obeys [facility] commands(6). Total: 15. 04:21 Eye Response: spontaneous(4). Verbal Response: oriented(5). Motor Response: obeys [facility] commands(6). Total: 15. Laceration: 04:17 Wound Repair of 2.5cm ( 1.0in ) subcutaneous laceration to outer aspect of right tatiana eyebrow and middle aspect of right eyebrow. Irregularly shaped.. Distal neuro/vascular/tendon intact. Anesthesia: Local anesthetic administered with 6 mls of 1% lidocaine w/ Epi. Wound prep: Simple cleansing by id. Skin closed with 4 5-0 Prolene using interrupted sutures and sterile technique. Dressed with Neosporin. Patient tolerated well. MDM: 01:41 Patient medically screened. [facility] 04:21 Differential diagnosis: Contusion of Hematoma on Laceration of Intracranial bleed- tatiana Concussion without LOC. Differential Diagnosis altered mental status. Differential diagnosis: abrasion, closed head injury, contusion, fracture, laceration, multiple trauma, sprain, strain. Data reviewed: vital signs, nurses notes, lab test result(s), EKG, radiologic studies, CT scan, plain films. Data interpreted: alarm security or surveillance monitor: rate is 70 beats/min, rhythm is regular, Pulse oximetry: on room air is 100 %. Test interpretation: by ED physician or midlevel provider: ECG, plain radiologic studies. Counseling: I had a detailed discussion with the patient and/or guardian regarding: the historical points, exam findings, and any diagnostic results supporting the discharge/admit diagnosis, lab results, radiology results, the need for outpatient follow up, a family practitioner. 01/14 01:43 Order name: Basic Metabolic Panel; Complete Time: 04:16 [facility] 01/14 01:43 Order name: CBC with Diff; Complete Time: 04:16 [facility] 01/14 01:43 Order name: LFT's; Complete Time: 04:16 [facility] 01/14 01:43 Order name: Magnesium; Complete Time: 04:16 [facility] 01/14 01:43 Order name: NT PRO-BNP; Complete Time: 04:16 [facility] 01/14 01:43 Order name: PT-INR; Complete Time: 04:16 [facility] 01/14 01:43 Order name: Troponin HS; Complete Time: 04:16 [facility] 01/14 01:43 Order name: XRAY Chest (1 view) [facility] 01/14 02:38 Order name: Head C Spine Cap Wo Con [facility]AL 01/14 01:43 Order name: EKG; Complete Time: 01:44 [facility] 01/14 01:43 Order name: Cardiac monitoring; Complete Time: 01:50 [facility] 01/14 01:43 Order name: EKG - Nurse/Tech; Complete Time: 04:46 [facility] 01/14 01:43 Order name: IV Saline Lock; Complete Time: 04:46 [facility] 01/14 01:43 Order name: Labs collected and sent; Complete Time: 01:50 [facility] 01/14 01:43 Order name: O2 Per Protocol; Complete Time: 01:50 [facility] 01/14 01:43 Order name: O2 Sat Monitoring; Complete Time: 01:50 [facility] 01/14 01:43 Order name: Dressing - Wound; Complete Time: 05:56 [facility] 01/14 01:43 Order name: Gloves, Sterile; Complete Time: 04:46 [facility] 01/14 01:43 Order name: Prolene, Sutures; Complete Time: 04:46 [facility] 01/14 01:43 Order name: Setup Suture Tray; Complete Time: 04:20 [place] 01/14 01:43 Order name: Ice pack; Complete Time: :26 tatiana EC:26 Rate is 78 beats/min. QRS [facility] is Normal. VA interval is normal. QRS interval is tatiana normal. QT interval is normal. No Q waves. T waves are Normal. No ST changes noted. Clinical impression: No evidence of ischemia. Administered Medications: 03:50 Drug: NS 0.9% 1000 ml Route: IV; Rate: 125 ml/hr; Site: right antecubital; al4 06:02 Follow up: Response: No adverse reaction; IV Status: Completed infusion; IV Intake: al4 500ml 03:50 Drug: Ancef (cefazolin) 1 grams Route: IVPB; Site: right antecubital; al4 04:42 Follow up: Response: No adverse reaction; IV Status: Completed infusion al4 03:54 Drug: Tetanus-Diphtheria Toxoid Adult 0.5 ml {[employer]: [employer]. Exp: al4 11/28/2023. Lot #: [id number]. } Route: IM; Site: left deltoid; 04:28 Follow up: Response: No adverse reaction al4 04:45 Drug: Lidocaine-Epinephrine -1%: (1:100,000) 10 ml {Note: administered by provider .} as6 Volume: 20 ml; Route: Infiltration; Disposition Summary: 01/14/22 04:25 Discharge Ordered Location: Home tatiana Problem: new tatiana Symptoms: have improved tatiana Condition: Stable tatiana Diagnosis - Fall on same level, unspecified tatiana - Laceration without foreign body of other part of head - right brow tatiana - Dementia in other diseases classified elsewhere without behavioral disturbance tatiana Followup: tatiana - With: Private Physician - When: 2 - 3 days - Reason: Recheck today's complaints, Continuance of care, Re-evaluation by your physician Discharge Instructions: - Discharge Summary Sheet tatiana - Dementia tatiana - Head Injury, Adult tatiana - Fall Prevention in the Home, Adult tatiana - Laceration Care, Adult tatiana - Laceration Care, Adult, [id number] tatiana - Fall Prevention in the Home, Adult, [id number] tatiana - Head Injury, Adult, [id number] tatiana - Dementia, [id number] tatiana Forms: - Medication Reconciliation Form tatiana - Thank You Letter tatiana - Antibiotic Education tatiana - Prescription Opioid Use tatiana Prescriptions: - Cephalexin 500 mg Oral Capsule - take 1 capsule by ORAL route every 6 hours for 7 days; 28 capsule; Refills: 0, tatiana Product Selection Permitted Signatures: Dispatcher [employer] Constantine Corado MD MD cha Slawson, Ashby RN RN as6 Tanner Larsen
[2022-01-14 07:52] VITALS: TEMP 98.7; O2SAT 100
[2022-01-14 08:02] VITALS: BP 101/54
--- NOTE | 2022-01-14 13:23 | RAD REPORT ---
EXAM DESCRIPTION: CT - Head C Spine Cap Wo Con - 01/14/2022 6:03 am CLINICAL HISTORY: 86 years, Female, FELL COMPARISON: None. FINDINGS: Multiple transaxial tomograms of the brain were obtained from the base of the skull to the vertex without contrast. 2-D multiplanar reformats and the coronal and sagittal plane were performed and reviewed. Multiple axial CT images through the cervical spine were obtained at 2 mm slice thickness at 2 mm int erval reconstruction. In addition 2-D multiplanar reformats and the sagittal coronal plane were perfo rmed and reviewed. Multiple transaxial tomograms of the chest abdomen and pelvis were performed from the lung bases to t he symphysis pubis 5 mm slice thickness at 5 mm interval reconstruction, without administration of IV and oral contrast. This exam was performed according to our departmental dose-optimization protocol, which includes auto mated exposure control, adjustment of the mA and/or kV according to patient size and/or use of iterat chelsea reconstruction technique. CT head: Brain parenchyma demonstrate mild prominence of the sulci and gyri are corresponding to mild brain atrophy especially along the frontal lobes. There is very minimal periventricular white matter changes of microvascular ischemia. There is no midline shift and/or mass effect. There is no evidenc e for acute intracranial hemorrhage. Lateral ventricles and cisterns displace normal appearance. No intra or extra axial fluid collections were seen. The calvarium is intact with no evidence for fra cture. The visualized portions of the paranasal sinuses and orbits demonstrate to be clear. CT C-spine: The alignment of the vertebral bodies are normal. There is no evidence of fracture or s ubluxation. 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 Th e spinal canal demonstrate no evidence for significant stenosis. Neural foramina demonstrate to be un remarkable. There are uncovertebral degenerative changes C3-C5. There is no prevertebral soft tissue swelling. Sagittal coronal reformatted images demonstrate no subluxation or bony abnormalities. CT CHEST: The lungs parenchyma demonstrate to be clear. No masses and/or nodules are identified. The re is no evidence for pneumothorax. The trachea mainstem bronchus demonstrate to be normal. There is no significant pleural and/or perica rdial effusions. The thoracic aorta demonstrate atherosclerotic disease. There is a dual-lead pacemaker via left subcl carla. The heart is not enlarged. There are no significant coronary artery calcifications. There is no significant mediastinal and/or hilar lymphadenopathy. The axillary regions demonstrate to be clear. The bone windows demonstrate diffuse bony osteopenia. Visualized portions of bilateral clavicles and humeral head demonstrate to be unremarkable. The scapulas, sternum and bilateral ribs demonstrate to be unremarkable. There is a small superior plate compression deformity at T11 vertebral body with increased sclerosis suggesting chronicity. Abdomen and pelvis: Grossly the unopacified liver, pancreas, spleen and adrenal glands demonstrate to be within normal limits, no significant focal lesions were identified. The gallbladder demonstrate d presence of layering high density structure corresponding to cholelithiasis. No significant biliary duct dilatation. The kidneys demonstrate grossly unremarkable. There is no evidence for nephrolithiasis and/or hydro nephrosis. No focal masses were demonstrated. The ureters displays normal appearance with normal caliber, no hydroureter was seen. Grossly the unopacified stomach, small bowel and large bowel demonstrate to be within normal limits. There is no evidence for bowel dilatation/or free air. There is mild fecal stasis. The urinary bladder demonstrate to be within normal limits. The uterus is absent. There are no adnexa l masses The aorta demonstrate atherosclerotic disease extending into the aortic bifurcation. There is no retroperitoneal lymphadenopathy. There is no evidence for ascites. The lumbar spine demonstrate the presence of diffuse bony osteopenia. There is a superior plate compr ession deformity with increased sclerosis at L1 vertebral body suggesting chronicity. There are degen erative disc disease with Modic changes type III at L2/L3. Minimal degenerative changes at L3/L4 and L5/S1. There rest of the lumbar spine demonstrate to unremarkable. The sacrum, sacroiliac joint, pelv ic bones, superior and inferior pubic ramus demonstrate to be within normal limits. IMPRESSION: CT head: No evidence for acute intracranial injury. Mild brain atrophy especially along the frontal lobes. Minimal periventricular white matter changes of microvascular ischemia. CT CERVICAL SPINE: No evidence of acute fracture or subluxation of the cervical spine. Degenerative disc disease at C3/C4 and C3/C4. Diffuse bony osteopenia. There is a small superior plate compression deformity at T11 vertebral body with increased sclerosis suggesting chronicity. There is a superior plate compression deformity with increased sclerosis at L1 vertebral body suggest ing chronicity. There are degenerative disc disease with Modic changes type III at L2/L3. CT CHEST: No evidence for acute traumatic injury to the chest. CT ABDOMEN/PELVIS: Cholelithiasis. Mild fecal stasis. Atherosclerotic disease of the aorta. Status post hysterectomy. Electronically signed by: Leo Kamara MD 01/14/2022 3:35 AM CDT Due to temporary technical issues with the PACS/Fluency reporting system, reports are being signed by the in house radiologist without review as a courtesy to ensure prompt reporting. The interpreting r adiologist is fully responsible for the content of the report.
--- NOTE | 2022-01-14 13:25 | RAD REPORT ---
EXAM DESCRIPTION: RAD - Chest Single View - 01/14/2022 2:11 am CLINICAL HISTORY: 86 years, Female, COUGH COMPARISON: None. FINDINGS: Single view of the chest was obtained portable. No prior films are available for compariso n. The cardiomediastinal silhouette demonstrate to be unremarkable. The heart is not enlarged. Th e thoracic aorta demonstrate to be mildly tortuous with intimal calcification. Multilead pacemaker in place. External device within the right lower chest limits evaluation. No significant pleural effusi ons. No focal areas of consolidation. The rest of the soft tissue and bony structures demonstrate t o be unremarkable. IMPRESSION: No acute cardiopulmonary process. Electronically signed by: Leo Kamara MD 01/14/2022 2:42 AM CDT Due to temporary technical issues with the PACS/Fluency reporting system, reports are being signed by the in house radiologist without review as a courtesy to ensure prompt reporting. The interpreting r adiologist is fully responsible for the content of the report.
--- NOTE | 2022-01-15 07:46 | EKG ---
Test Date: 2022-01-14 Test Time: 03:40:58 [employer] Instructor: JANESSA MEASUREMENT RESULTS: Intervals: Rate: 78 MT: 164 QRSD: 142 QT: 452 QTc: 515 [place]: P: 56 MT: 164 QRS: 69 T: -16 INTERPRETIVE STATEMENTS: Electronic ventricular pacemaker Compared to ECG 01/08/2022 17:29:22 No significant changes Electronically Signed On 01-15-22 07:42:35 CDT by Ernesto Tyson
== END 2022-01-14 06:02 | disposition home or self-care (01) ==
LOC: ER 01:35
PROC: 0JQ10ZZ Repair Face Subcutaneous Tissue and Fascia, Open Approach (ICD-10-PCS; principal; 2022-01-14)
DX: S01.81XA Laceration without foreign body of other part of head, initial encounter (principal); F03.90 Unspecified dementia, unspecified severity, without behavioral disturbance, psychotic disturbance, mood disturbance, and anxiety; W18.30XA Fall on same level, unspecified, initial encounter; Y92.129 Unspecified place in nursing home as the place of occurrence of the external cause; Z23 Encounter for immunization; E11.9 Type 2 diabetes mellitus without complications; I10 Essential (primary) hypertension; Z95.0 Presence of cardiac pacemaker
CPT/HCPCS: 96365; 96361; 93005; 85025; 80048; 36415; 83735; 85610; 80076; 84484; 83880; 70450; 71250; 72125; 71045; 90471; 90714; 99285; 12011; J7030; J0690

== ENCOUNTER 2022-01-24 07:59 | Emergency (ER) | payer OTHER ==
--- NOTE | 2022-01-24 10:04 | RAD REPORT ---
EXAM DESCRIPTION: CT - Head C Spine Mpr Wo Con - 01/24/2022 9:49 am CLINICAL HISTORY: Head and neck injury status post fall. Head and neck pain COMPARISON: December 2021 TECHNIQUE: Computed axial tomography of the head and cervical spine was obtained. Sagittal and coronal reconstruction was performed. All CT scans are performed using dose optimization technique as appropriate and may include automated exposure control or mA/KV adjustment according to patient size. FINDINGS: An intracranial bleed is not seen. 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 The ventricles are normal in caliber. An extra-axial fluid collection is not noted.Fluid within the v isualized sinuses and mastoids is not seen A cervical fracture is not visualized. No dislocation is noted. Chronic nonunion posterior elements C 1 IMPRESSION: No acute intracranial abnormality is seen. A cervical fracture is not visualized. If the patient continues to have symptoms to suggest intracra nial /spinal cord pathology then MRI would be recommended
--- NOTE | 2022-01-24 10:13 | RAD REPORT ---
EXAM DESCRIPTION: CTThoracic Spine W/o Cont01/24/2022 9:50 am CLINICAL HISTORY: Back injury with Back pain status post fall TECHNIQUE: Computed axial tomography of thoracic spine was obtained with coronal and sagittal recons truction. All CT scans are performed using dose optimization technique as appropriate and may include automated exposure control or mA/KV adjustment according to patient size. FINDINGS: Minimal chronic compression T11 vertebral body. Moderate chronic compression L1 vertebral body. No acute fracture. No dislocation No high-grade central stenosis is seen. AP diameter ascending thoracic aorta 3.9 centimeters IMPRESSION: Negative for an acute thoracic fracture If the patient has clinical symptoms to suggest spinal cord pathology then MRI would be recommended.
--- NOTE | 2022-01-24 10:33 | EDPHYS ---
Physician Documentation [facility] Name: Yamileth Varela Age: 86 yrs Sex: Female : 1935 Arrival Date: 01/24/2022 Time: 08:02 Bed 5 Private MD: ED Physician Constantine Powers HPI: 01/24 08:30 This 86 yrs old Female presents to ER via EMS with complaints of Fall injury. pm1 08:30 The patient or guardian reports pain. The complaints affect the left occipital area and pm1 right occipital area. Context of injury: The problem was sustained at a penitentiary or assisted living facility, resulted from a fall, from a seated position. Onset: The symptoms/episode began/occurred just prior to arrival. Associated signs and symptoms: Loss of consciousness: This patient did not experience any loss of consciousness. Severity of symptoms: in the emergency department the symptoms. The patient has not experienced similar symptoms in the past. Patient was pushing back on her chair against the table and she fell backwards in the chair. Patient with complaints of headache to the occipital area. Negative neck pain. Negative LOC. Historical: - Allergies: 08:08 No Known Allergies; lentz - Home Meds: 08:08 aspirin 81 mg Oral tab [Active]; atorvastatin 20 mg oral tab 1 tab once daily [Active]; lentz Colace 100 mg oral cap 2 caps once daily [Active]; glipizide 5 mg Oral tab 1 tab once daily [Active]; lisinopril-hydrochlorothiazide 20-12.5 mg oral tab 1 tab once daily [Active]; loratadine 10 mg oral TbDi 1 tab once daily [Active]; olanzapine 5 mg oral tab 2 tabs once daily [Active]; trazodone 100 mg Oral tab 2 tabs once daily [Active]; - PMHx: 08:08 Dementia; diabetes mellitus; Hypertensive disorder; lentz - PSHx: 08:08 pacemaker; lentz - Immunization history:: Adult Immunizations up to date. - Social history:: Smoking status: Patient denies any tobacco usage or history of. - Immunization history: Last tetanus immunization: - up to date. ROS: 08:30 Constitutional: Negative for fever, chills, and weight loss, Cardiovascular: Negative pm1 for chest pain, palpitations, and edema, Respiratory: Negative for shortness of breath, cough, wheezing, and pleuritic chest pain, Abdomen/GI: Negative for abdominal pain, nausea, vomiting, diarrhea, and constipation, Back: Negative for injury and pain, MS/Extremity: Negative for injury and deformity, Skin: Negative for injury, rash, and discoloration, Neuro: Negative for headache, weakness, numbness, tingling, and seizure. 08:30 All other systems are negative. Exam: 08:30 Constitutional: This is a well developed, well nourished patient who is awake, alert, pm1 and in no acute distress. Head/Face: Normocephalic, atraumatic. 08:30 Skin: Warm, dry with normal turgor. Normal color with no rashes, no lesions, and no evidence of cellulitis. MS/ Extremity: Pulses equal, no cyanosis. Neurovascular intact. Full, normal range of motion. 08:30 Eyes: Exam is negative for acute changes, Periorbital structures: no acute changes, Extraocular movements: no acute changes, Conjunctiva: no acute changes, Corneas: no acute changes. 08:30 Cardiovascular: Exam negative for acute changes, Rate: normal, Rhythm: regular, Pulses: no pulse deficits are appreciated. 08:30 Respiratory: Exam negative for acute changes, respiratory distress, shortness of breath. 08:30 Back: vertebral tenderness, is not appreciated, tenderness to right side of thoracic spine. negative for vertebral tenderness. 08:30 Neuro: Exam negative for acute changes, Orientation: to person, place, situation, Mentation: appropriate for stated age, Motor: moves all fours. Vital Signs: 08:05 BP 119 / 56; Pulse 69; Resp 17; Temp 98.2(O); Pulse Ox 98% on R/A; Weight 58.97 kg; lentz Height 5 ft. 5 in. (165.10 cm); 08:05 Body Mass Index 21.63 (58.97 kg, 165.10 cm) lentz [place] Coma Score: 08:17 Eye Response: spontaneous(4). Verbal Response: oriented(5). Motor Response: obeys lentz commands(6). Total: 15. 08:30 Eye Response: spontaneous(4). Verbal Response: oriented(5). Motor Response: obeys pm1 commands(6). Total: 15. Trauma Score (Adult): 08:17 Eye Response: spontaneous(1); Verbal Response: oriented(1); Motor Response: obeys lentz commands(2); Systolic BP: > 89 mm Hg(4); Respiratory Rate: 10 to 29 per min(4); [place] Score: 15; Trauma Score: 12 MDM: 08:06 [facility] 08:58 Data reviewed: vital signs. Data interpreted: Pulse oximetry: on room air is 98 %. pm1 Interpretation: normal. 10:30 Counseling: I had a detailed discussion with the patient and/or guardian regarding: the pm1 historical points, exam findings, and any diagnostic results supporting the discharge/admit diagnosis, radiology results, the need for outpatient follow up, to return to the emergency department if symptoms worsen or persist or if there are any questions or concerns that arise at home. 01/24 08:18 Order name: CT Head C Spine; Complete Time: 10:14 pm1 01/24 08:18 Order name: CT Thoracic Spine Wo Cont; Complete Time: 10:14 pm1 Administered Medications: No medications were administered Disposition Summary: 01/24/22 10:33 Discharge Ordered Location: Home pm1 Problem: new pm1 Symptoms: have improved pm1 Condition: Stable pm1 Diagnosis - Fall from chair, initial encounter pm1 - Unspecified superficial injury of other part of head, initial encounter pm1 Followup: pm1 - With: Emergency Department - When: As needed - Reason: Worsening of condition Followup: pm1 - With: Private Physician - When: 2 - 3 days - Reason: Recheck today's complaints, Continuance of care, Re-evaluation by your physician Discharge Instructions: - Discharge Summary Sheet pm1 - Head Injury, Adult pm1 - Fall Prevention in the Home, Adult pm1 Forms: - Medication Reconciliation Form pm1 - Thank You Letter pm1 - Antibiotic Education pm1 - Prescription Opioid Use pm1 Signatures: Dispatcher [employer] EDConstantine Denton MD MD cha Marinas, Patrick ATTIC BLOWER ATTIC BLOWER pm1 Bee-Sherrie Lerner RN RN ha
--- NOTE | 2022-01-24 10:33 | ER ---
Nurse's Notes [facility] Name: Yamileth Varela Age: 86 yrs Sex: Female : 1935 Arrival Date: 01/24/2022 Time: 08:02 Bed 5 Private MD: Diagnosis: Fall from chair, initial encounter;Unspecified superficial injury of other part of head, initial encounter Presentation: 01/24 08:05 Chief complaint: Patient states: pt presented to ed Reporting that she push back on her lentz chair from the dinning table and fell back hitting the back of her head. pt denies loc. pt recently had a head injury with notable sutures on the right eye brow. shelter sent for her to get checked our. Coronavirus screen: Vaccine status: Patient reports receiving the 2nd dose of the covid vaccine. Ebola Screen: Patient denies travel to an Ebola-affected area in the 21 days before illness onset. Initial Sepsis Screen: Does the patient meet any 2 criteria? No. Patient's initial sepsis screen is negative. Does the patient have a suspected source of infection? No. Patient's initial sepsis screen is negative. Risk Assessment: Do you want to hurt yourself or someone else? Patient reports no desire to harm self or others. Onset of symptoms was January 24, 2022. 08:05 Method Of Arrival: EMS: [facility] lentz 08:05 Acuity: KENTRELL 3 lentz 08:17 Care prior to arrival: None. Mechanism of Injury: Fall fell back on her chair when she lentz pushed back from the dinning table. Trauma event details: Injury occurred: January 24, 2022. Triage Assessment: 08:08 General: Appears in no apparent distress. Behavior is calm, cooperative. Pain: Denies lentz pain. Trauma Activation: Alert Physician: ED Physician; Name: ; Notified At: ; Arrived At: Physician: General Surgeon; Name: ; Notified At: ; Arrived At: Physician: Radiology; Name: ; Notified At: ; Arrived At: Physician: Respiratory; Name: ; Notified At: ; Arrived At: Physician: Lab; Name: ; Notified At: ; Arrived At: Historical: - Allergies: 08:08 No Known Allergies; lentz - Home Meds: 08:08 aspirin 81 mg Oral tab [Active]; atorvastatin 20 mg oral tab 1 tab once daily [Active]; lentz Colace 100 mg oral cap 2 caps once daily [Active]; glipizide 5 mg Oral tab 1 tab once daily [Active]; lisinopril-hydrochlorothiazide 20-12.5 mg oral tab 1 tab once daily [Active]; loratadine 10 mg oral TbDi 1 tab once daily [Active]; olanzapine 5 mg oral tab 2 tabs once daily [Active]; trazodone 100 mg Oral tab 2 tabs once daily [Active]; - PMHx: 08:08 Dementia; diabetes mellitus; Hypertensive disorder; lentz - PSHx: 08:08 pacemaker; lentz - Immunization history:: Adult Immunizations up to date. - Social history:: Smoking status: Patient denies any tobacco usage or history of. - Immunization history: Last tetanus immunization: - up to date. Screenin:13 Abuse screen: Denies threats or abuse. Denies injuries from another. Nutritional lentz screening: No deficits noted. Tuberculosis screening: No symptoms or risk factors identified. Fall Risk Fall in past 12 months (25 points). Primary Survey: 08:17 NO uncontrolled hemorrhage observed. A: The client is awake and alert. The airway is lentz patent. The client is alert. Airway: patent. Breathing/Chest: Spontaneous respiratory effort, equal unlabored respirations, breath sounds clear bilaterally, regular pattern, symmetrical chest rise and fall. Respiratory effort: spontaneous, unlabored. Circulation: No external hemorrhage present. Regular and strong central pulse, skin warm/dry/normal color. Disability Client is alert. Exposure/Environment: A warming method has been applied: A warm blanket has been provided to the patient. 08:20 Reassessment Alertness and Airway: Awake and alert. The airway is patent. Airway Patent lentz Breathing: Circulation: No external hemorrhage noted. Regular and strong central pulse, skin warm/dry/normal color. Disability: Alert. Assessment: 08:13 General: Appears in no apparent distress. Behavior is calm, cooperative. Pain: Denies lentz pain. Neuro: No deficits noted. Level of Consciousness is awake, obeys commands, Oriented to person, place, situation. 11:31 General: notified [facility] on patients status and discharge. ww Vital Signs: 08:05 BP 119 / 56; Pulse 69; Resp 17; Temp 98.2(O); Pulse Ox 98% on R/A; Weight 58.97 kg; lentz Height 5 ft. 5 in. (165.10 cm); 08:05 Body Mass Index 21.63 (58.97 kg, 165.10 cm) lentz [place] Coma Score: 08:17 Eye Response: spontaneous(4). Verbal Response: oriented(5). Motor Response: obeys lentz commands(6). Total: 15. 08:30 Eye Response: spontaneous(4). Verbal Response: oriented(5). Motor Response: obeys pm1 commands(6). Total: 15. Trauma Score (Adult): 08:17 Eye Response: spontaneous(1); Verbal Response: oriented(1); Motor Response: obeys lentz commands(2); Systolic BP: > 89 mm Hg(4); Respiratory Rate: 10 to 29 per min(4); [place] Score: 15; Trauma Score: 12 ED Course: 08:02 Patient arrived in ED. 08:02 Vincenzo Carlson NP is PHCP. pm1 08:02 Constantine Powers MD is Attending Physician. pm1 08:03 Sherrie Manuel RN is Primary Nurse. lentz 08:08 Triage completed. lentz 08:08 Arm band placed on. lentz 08:13 Patient has correct armband on for positive identification. Bed in low position. lentz 08:13 No provider procedures requiring assistance completed. lentz 08:20 Patient maintains SpO2 saturation greater than 95% on room air. lentz 08:20 Thermoregulation: warm blanket given to patient. lentz 09:51 CT Head C Spine In Process Unspecified. EDMS 09:51 CT Thoracic Spine Wo Cont In Process Unspecified. EDMS 11:20 IV discontinued, intact, bleeding controlled, No redness/swelling at site. Pressure mb7 dressing applied. Administered Medications: No medications were administered Outcome: 10:33 Discharge ordered by MD. pm1 12:06 Discharged to shelter. ww 12:06 Condition: stable 12:06 Patient's length of stay was not longer than 2 hours. 12:07 Patient left the ED. ww Signatures: Dispatcher [employer] EDMS Vincenzo Carlson NP DEMOLITION CRANE OPERATOR pm1 Jen Jean Mary mb7 Ayesha Cox RN RN Sherrie Manuel RN RN
[2022-01-24 12:31] VITALS: BP 119/56; TEMP 98.2; O2SAT 98
== END 2022-01-24 12:07 | disposition home or self-care (01) ==
LOC: ER 07:59
DX: S00.80XA Unspecified superficial injury of other part of head, initial encounter (principal); W07.XXXA Fall from chair, initial encounter; E11.9 Type 2 diabetes mellitus without complications; F03.90 Unspecified dementia, unspecified severity, without behavioral disturbance, psychotic disturbance, mood disturbance, and anxiety; I10 Essential (primary) hypertension; Z95.0 Presence of cardiac pacemaker; Z79.82 Long term (current) use of aspirin
CPT/HCPCS: 70450; 72125; 72128; 99284